=== PATIENT | female | born 1960 | race Asian ===

== ENCOUNTER 2023-09-27 19:34 | Emergency (ER) | payer MEDICAID ==
[~2023-09-27] VITALS: Ht 160 cm; Wt 55.9 kg
[2023-09-27 20:07] VITALS: TEMP 98.4
[2023-09-27] MEDS: ONDANSETRON HCL 4 MG TABLET PO ONE (21:59)
[2023-09-27] MEDS: ACETAMINOPHEN 500 MG TABLET PO ONE (21:59)
[2023-09-27] MEDS ORDERED: ONDA-104 PO (22:14)
[2023-09-27] MEDS ORDERED: ACET-2247 PO (22:14)
[2023-09-27 22:28] VITALS: BP 130/75; PULSE 71; RESP 16
== END 2023-09-27 22:30 | disposition home or self-care (01) ==
LOC: EMS 19:34
DX: S06.0X0A Concussion without loss of consciousness, initial encounter (principal); Z90.49 Acquired absence of other specified parts of digestive tract; V89.2XXA Person injured in unspecified motor-vehicle accident, traffic, initial encounter; Y93.89 Activity, other specified; Y92.89 Other specified places as the place of occurrence of the external cause; Y99.8 Other external cause status
CPT/HCPCS: 99283; Q0162

== ENCOUNTER 2024-02-14 08:50 | Emergency (ER) | payer MEDICAID, OTHER ==
[~2024-02-14] VITALS: Ht 154.9 cm; Wt 56.8 kg
[~2024-02-14 08:50] MED LIST: ACET-2247 PO; ONDA-104 PO
[2024-02-14 09:00] VITALS: TEMP 98.3
[2024-02-14 09:52] LABS: BASOPHILS % (AUTO) 0.6 % (0.0-2.0); EOSINOPHILS % (AUTO) 3.7 % (1.0-6.0); HEMATOCRIT 38.2 % (36-46); HEMOGLOBIN 12.8 g/dL (12.0-16.0); LYMPHOCYTES # (AUTO) 2.1 K/uL (1.0-4.8); LYMPHOCYTES % (AUTO) 44.5 % (22.0-44.0); MEAN CORPUSCULAR HEMOGLOBIN 30.8 pg (26.0-34.0); MEAN CORPUSCULAR HGB CONC 33.4 G/dL (31.0-37.0); MEAN CORPUSCULAR VOLUME 92 fL (80-100); MONOCYTES # (AUTO) 0.4 K/uL (0.1-1.0); MONOCYTES % (AUTO) 9.2 % (2.0-9.0); PLATELET COUNT (AUTO) 260 K/uL (150-450); RED BLOOD CELL COUNT(AUTO) 4.14 MIL/uL (4.00-5.20); RED CELL DISTRIBUTION WIDTH 13.2 % (11.5-14.5); WHITE BLOOD COUNT (AUTO) 4.7 K/uL (4.5-11.0)
[2024-02-14 10:01] LABS: ANION GAP 9 mmol/L (8-16); CARBON DIOXIDE 28 mmol/L (22-29); CHLORIDE 104 mmol/L (98-107); CREATININE 0.65 mg/dL (0.60-1.30); GLOMERULAR FILTR. RATE CALC > 60 mL/min (>60); GLUCOSE,RANDOM 101 mg/dL (70-110); POTASSIUM 3.6 mmol/L (3.5-5.1); SODIUM SERUM 141 mmol/L (136-145); UREA NITROGEN, BLOOD 12 mg/dL (7-18)
[2024-02-14 12:06] VITALS: BP 147/77; PULSE 59; RESP 15; O2SAT 98
== END 2024-02-14 12:26 | disposition home or self-care (01) ==
LOC: EMS 08:50
DX: I10 Essential (primary) hypertension (principal); Z90.49 Acquired absence of other specified parts of digestive tract; Z98.890 Other specified postprocedural states; Z91.013 Allergy to seafood; Z91.012 Allergy to eggs; Z91.010 Allergy to peanuts; Z91.018 Allergy to other foods
CPT/HCPCS: 80048; 85025; 93005; 99284